=== PATIENT | male | born 1990 | race Caucasian/White ===

== ENCOUNTER 2023-11-17 14:48 | Emergency (ER) | payer OTHER, SELFPAY ==
[2023-11-17 14:52] VITALS: BP 135/76
[2023-11-17 14:59] VITALS: BMI 25.2
--- NOTE | 2023-11-17 15:34 | ED.GENMED ---
History of Present Illness
General
Chief Complaint: Skin Problem
Source: patient and spouse
Exam Limitations: none
Time Seen by Provider: 11/17/23 15:06
Nursing documentation reviewed up to this point in time: agreed with
History of Present Illness
History of Present Illness:
32M without significant PMH. Presenting with a laceration to the right anterior knee. occurred after using a chain saw and tripping onto it while it was on. It cut through his pants. Able to walk at the time. Ongoing pain, worse with full
flexion of the knee. Last Tetanus shot was 2 years ago. No immunosuppressive hx or diabetes. Denies numbness or weakness.
Past History
Past History
ED Past Medical History: None
Review of Systems
Review of Systems
Allergies reviewed?: Yes
All Other Systems: ROS reviewed and negative except as documented in HPI and ROS
Phy Exam
Physical Exam
Physical Exam:
GENERAL: Alert , in no apparent distress
EYE: pupils equal and reactive
NECK: Supple, no significant adenopathy.
ENT: o/p clr, mmm.
CARDIAC: Regular rate and rhythm .
LUNGS: Clear breath sounds bilaterally, no acute respiratory distress, no wheezes/rales/rhonchi
ABDOMEN: Soft, without focal tenderness, no r/g, no cvat
NEUROLOGICAL: Alert and oriented, no focal neuro deficits
SKIN: Laceration overlying the right patella region roughly 7 cm in length. Somewhat ragged. No significant foreign body seen deep to the fascia no involvement of the tendon or bone. Explored to its base. Warm and dry, skin intact.
MUSCULOSKELETAL: No edema, well perfused.
PSYCH: Normal and appropriate interaction.
Course
Orders/Labs/Results
Orders:
Orders
11/17/23 15:12
Knee, Right 4 or More Views [CR Knee- Right 4 Or More View*] Urgent
Comment:
Reason For Exam: knee laceration
11/17/23 16:02
CeFAZolin 1 GRAM [Ancef] 1 gram in 5 ml IV NOW
Vital Signs
Initial and Last Documented VS:
Initial Vital Signs
Temp Pulse Resp BP Pulse Ox
97.5 F 86 18 135/76 96
11/17/23 14:52 11/17/23 14:52 11/17/23 14:52 11/17/23 14:52 11/17/23 14:52
Last Documented Vital Signs
Temp Pulse Resp BP Pulse Ox
97.5 F 86 18 135/76 96
11/17/23 14:52 11/17/23 14:52 11/17/23 14:52 11/17/23 14:52 11/17/23 14:52
Procedures
Laceration Closure
Right Anterior Knee:
Status of Wound: clean
Size of Wound in cm: 7
Description of Wound Edges: ragged
Preparation: cleaned with saline
Anesthesia: 1% Lidocaine with epi
Revision/Debridement: minor revision and irrigate-direct pressure
Wound exploration: explored to base- no FB and no tendon involvement
Type of Closure: layered closure and interrupted sutures
Skin Closure Material: 3-0 nylon and 4-0 chromic gut
Number of sutures: 14
Additional information:
Ten 3-0 nylon and 4 chromic. 9 simple interrupted stitches and 1 horizontal mattress.
MDM/Problems Addressed
MDM/Problems Addressed:
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 able to walk and straight leg raise. No significant FB in the wound. Numbed and cleaned/irrigated thoroughly here. the wound was somewhat deep to the fascia. Considering this, pt
started on IV abx here for prophylaxis. Also written for Keflex at discharge. 10 total stitches placed otherwise stable for discharge at this time.
*Critical Care Note
Total Time (30-74mins, 75-104mins- exclusive of procedures): Not Applicable
ED Attending Note
-
Portions of this chart may have been created with voice recognition software.� Occasional wrong word or��sound alike� substitutions may have occurred due to the inherent limitations of voice recognition software.
Discharge Plan
Departure
Patient Disposition: Home (Routine Discharge)
Date of Disposition: 11/17/23
Time of Disposition: 16:37
Patient with high blood pressure during this ER visit?: No
Condition: Good
Covid-19: Not Applicable
Discharge Problem:
Knee laceration
Instructions: Laceration Repair With Stitches ED
Prescriptions:
New
cephalexin 500 mg capsule
500 mg PO QID 3 Days Qty: 12 0RF
No Action
pantoprazole [Protonix] 40 mg tablet,delayed release (DR/EC)
40 mg PO DAILY Qty: 14 0RF
Referrals:
NONE,* [Family Provider] -
Activity Restrictions/Additional Instructions:
You came to the emergency department today with concerns of a laceration to your knee. This was thoroughly cleaned and closed with 10 total stitches including 9 simple interrupted sutures and 1 horizontal mattress stitch. He also had 4 deep
stitches. These are absorbable and do not need to be removed. Please keep the area clean covered and have sutures removed in 14 days. Return to the emergency department for any worsening, new or concerning symptoms. To reduce risk of infection
please take Keflex 4 times daily over the next 3 days starting tomorrow morning.
Interventions
Interventions:
*Risk Screen - Suicide Last Done: 11/17/23 14:52
*General Assessment Last Done: 11/17/23 14:52
*Neglect/Abuse Screening Last Done: 11/17/23 14:52
ED- Fall Risk Assessment Last Done: 11/17/23 14:59
*ED COVID-19 Vaccine History Last Done: 11/17/23 14:59
*Nursing Disposition Last Done: 11/17/23 16:42
ED-Skin Assessment Last Done: 11/17/23 14:59
Discharge Date and Time
Discharge Date/Time: 11/17/23 16:42
Print Language: [id number]
[2023-11-17] MEDS: ANCEF 5 IV (16:16)
== END 2023-11-17 16:42 | disposition home or self-care (01) ==
LOC: EMR 14:48
PROVIDERS: EMERGENCY PHYSICIAN Emergency Medicine
DX: S81.011A Laceration without foreign body, right knee, initial encounter (principal); W29.3XXA Contact with powered garden and outdoor hand tools and machinery, initial encounter
CPT/HCPCS: 99284; 12032; 96374; 73564